=== PATIENT | female | born 1990 | race Caucasian/White ===

== ENCOUNTER 2020-12-07 16:47 | Emergency (ER) | payer OTHER ==
[~2020-12-07 16:47] MED LIST: PRENATAL VITAM1 EAC6 PO; ZANTAC150 MG PO
[2020-12-07] MEDS ORDERED: VALTREX1000 MG PO (20:48)
[2020-12-09 20:10] LABS: CHLAMYDIA TRACHOMATIS, NAA Negative (Negative); NEISSERIA GONORRHOEAE, NAA Negative (Negative)
== END 2020-12-07 21:12 | disposition home or self-care (01) ==
LOC: ER1 16:47
PROVIDERS: Emergency Medicine
DX: A60.04 Herpesviral vulvovaginitis (principal)
CPT/HCPCS: 81001; 84703; 87086; 87252; 99283